=== PATIENT | female | born 1955 | race Caucasian/White ===

== ENCOUNTER 2018-07-31 17:06 | Emergency (ER) | payer OTHER ==
[~2018-07-31] VITALS: Ht 167.6 cm; Wt 86.2 kg
[2018-07-31] MEDS ORDERED: SPIRIVA18 MCG INH (17:21)
[2018-07-31] MEDS ORDERED: NORCO 5-325 TA1 EACH PO (17:53)
[2018-07-31 18:22] VITALS: BP 169/90
== END 2018-07-31 18:23 | disposition home or self-care (01) ==
LOC: M.ERS 17:06
DX: M25.512 Pain in left shoulder (principal); F32.9 Major depressive disorder, single episode, unspecified; F41.9 Anxiety disorder, unspecified; J44.9 Chronic obstructive pulmonary disease, unspecified; I10 Essential (primary) hypertension